=== PATIENT | male | born 1985 | race Two or more races ===

== ENCOUNTER 2021-07-22 06:38 | Outpatient (CLI) | payer OTHER | END 2021-07-22 06:48 | disposition home or self-care (01) | LOC: LAB 06:38 | PROVIDERS: ATTEND Otolaryngology | DX: E03.9 Hypothyroidism, unspecified (principal); E78.9 Disorder of lipoprotein metabolism, unspecified ==

== ENCOUNTER 2021-07-22 07:51 | Outpatient (CLI) | payer OTHER | END 2021-07-22 08:05 | disposition home or self-care (01) | LOC: RX STUDY 07:51 | PROVIDERS: ATTEND Otolaryngology | DX: K21.9 Gastro-esophageal reflux disease without esophagitis (principal); Z01.818 Encounter for other preprocedural examination ==